=== PATIENT | female | born 1940 | race Caucasian/White ===

== ENCOUNTER 2018-05-07 16:49 | Emergency (ER) | payer BC, MEDICARE ==
[~2018-05-07] VITALS: Ht 147.3 cm; Wt 43.0 kg
[~2018-05-07 16:49] MED LIST: ALEN35TA24 PO; AMLO5TAB2 PO; ASPI1TAB57 PO; ATEN50TA PO; CALC12502 PO; CENTCHW4 CHEW; CLOB0.0510 TOPICAL; ESTR42.5V VAGINAL; FENO145T2 PO; GABA300C5 PO; HYDR25TA5 PO; MOBI15TA PO; SERT-129 PO
[2018-05-07 17:15] VITALS: BP 169/87; PULSE 82; RESP 14; TEMP 98.1; O2SAT 96
[2018-05-07 19:56] VITALS: BP 205/84; PULSE 73; RESP 18; O2SAT 98
[2018-05-07] MEDS ORDERED: MORPHINE SULFATE 2 MG/ML SYRINGE IV PUSH ONE (20:00)
[2018-05-07] MEDS ORDERED: MORPHINE SULFATE 4 MG/ML INJ IV PUSH ONE (20:15)
--- NOTE | 2018-05-07 20:33 | PD ---
HPI Chief Complaint: GI Complaint Time Seen by Provider: 19:45 Travel History International Travel<30 days: No Contact w/Intl Traveler<30days: No Traveled to known affect area: No History of Present Illness HPI This is a 77-year-old female who presents to the emergency department having fallen a week ago. She was dizzy at that time and fell backwards and hit her head and since then she has had severe low back pain radiating to the abdomen, constant, moderate severity worse with walking and moving improved with rest. She had an MRI as an outpatient following the fall in the setting of vertigo which she does not know the results of that it was done at [place]. FORMERLY [facility], [facility] Past Medical History Depression: Yes Cardiovascular Problems: Yes High Cholesterol: Yes Diabetes: No Patient Takes Glucophage: No Diminished Hearing: No Hypertension: Yes Psychiatric: Yes Immunizations Current: Yes Tetanus Vaccination: > 5 Years Influenza Vaccination: Yes ?: Not Menopausal: Yes : 1 Para: 1 Past Surgical History Other Surgery: Yes (CARPEL TUNNEL) Social History Alcohol Use: No Tobacco Use: Yes Substance Use: No Allergies-Medications (Allergen,Severity, Reaction): Coded Allergies: No Known Allergies (Unverified Adverse Reaction, Unknown, 05/07/18) Reported Meds & Prescriptions Reported Meds & Active Scripts Active Mobic (Meloxicam) 15 Mg Tab 15 Mg PO DAILY Reported Clobetasol Topical (Clobetasol Propionate) 0.05% Gel 1 Applic TOPICAL BID Estrace Vaginal (Estradiol) 0.01% Cream 1 Appl VAGINAL HS Sertraline (Sertraline HCl) 100 Mg Tab 100 Mg PO DAILY Calcium (Oyster Shell) 500 Mg Calcium (1250 Mg) Tab 500 Mg PO DAILY Centrum (Multiple Vitamins W/ Minerals) 1 Chew 1 Tab CHEW DAILY Alendronate (Alendronate Sodium) 35 Mg Tab 35 Mg PO Q7D Fenofibrate 145 Mg Tab 145 Mg PO DAILY Amlodipine (Amlodipine Besylate) 5 Mg Tab 5 Mg PO DAILY Gabapentin 300 Mg Cap 300 Mg PO HS Hydrochlorothiazide 25 Mg Tab 25 Mg PO BID Aspirin 81 (Aspirin) 81 Mg Tabdr 81 Mg PO DAILY Atenolol 50 Mg Tab 50 Mg PO BID Review of Systems Except as stated in HPI: all other systems reviewed are Neg Physical Exam Narrative GENERAL: Uncomfortable appearing. SKIN: Old healing laceration on the posterior occiput. HEAD: Atraumatic. Normocephalic. EYES: Pupils equal and round. No injection or drainage. ENT: Moist mucous membranes NECK: Trachea midline. CARDIOVASCULAR: Regular rate and rhythm. No murmur appreciated. RESPIRATORY: Clear to auscultation. Breath sounds equal bilaterally. GASTROINTESTINAL: Abdomen soft, tender to palpation worse in the lower abdomen with no rebound or guarding MUSCULOSKELETAL: Tender to palpation along the mid lumbar spine. Painless range of motion at the hips bilaterally. NEUROLOGICAL: Awake and alert. No obvious cranial nerve deficits. Moving all extremities. PSYCHIATRIC: Appropriate mood and affect; insight and judgment normal. Data Data Last Documented VS Vital Signs Date Time Temp Pulse Resp B/P (MAP) Pulse Ox O2 Delivery O2 Flow Rate FiO2 05/07/18 19:56 73 18 205/84 (124) 98 Room Air 05/07/18 17:15 98.1 Orders Orders Complete Blood Count With Diff (05/07/18 19:53) Basic Metabolic Panel (Bmp) (05/07/18 19:53) ^ Insert Iv (05/07/18 19:53) Ct Abd/Pel W Iv Contrast(Rout) (05/07/18 ) Morphine Inj (Morphine Inj) (05/07/18 20:00) Morphine Inj (Morphine Inj) (05/07/18 20:15) Ct Lumb Spine W Iv Contrast (05/07/18 ) Iohexol 350 Inj (Omnipaque 350 Inj) (05/07/18 21:23) Labs Laboratory Tests Test 05/07/18 20:10 White Blood Count 6.4 TH/MM3 Red Blood Count 4.68 MIL/MM3 Hemoglobin 14.4 GM/DL Hematocrit 42.5 % Mean Corpuscular Volume 90.8 FL Mean Corpuscular Hemoglobin 30.8 PG Mean Corpuscular Hemoglobin Concent 33.9 % Red Cell Distribution Width 14.9 % Platelet Count 330 TH/MM3 Mean Platelet Volume 8.6 FL Neutrophils (%) (Auto) 67.1 % Lymphocytes (%) (Auto) 18.5 % Monocytes (%) (Auto) 12.4 % Eosinophils (%) (Auto) 1.3 % Basophils (%) (Auto) 0.7 % Neutrophils # (Auto) 4.3 TH/MM3 Lymphocytes # (Auto) 1.2 TH/MM3 Monocytes # (Auto) 0.8 TH/MM3 Eosinophils # (Auto) 0.1 TH/MM3 Basophils # (Auto) 0.0 TH/MM3 CBC Comment DIFF FINAL Differential Comment Blood Urea Nitrogen 21 MG/DL Creatinine 0.98 MG/DL Random Glucose 81 MG/DL Calcium Level 10.3 MG/DL Sodium Level 138 MEQ/L Potassium Level 3.7 MEQ/L Chloride Level 100 MEQ/L Carbon Dioxide Level 28.2 MEQ/L Anion Gap 10 MEQ/L Estimat Glomerular Filtration Rate 55 ML/MIN MDM Medical Decision Making Medical Screen Exam Complete: Yes Emergency Medical Condition: Yes Interpretation(s) no leukocytosis electrolytes within normal limits Last 24 hours Impressions Lum[address]ine CT 05/07/18 0000 Signed Impressions: CONCLUSION: Severe multilevel facet arthritis and degenerative disc disease without spinal canal stenosis. Foraminal narrowing as above There is no evidence of acute frac ture. Abdomen/Pelvis CT 05/07/18 0000 Signed Impressions: CONCLUSION: No evidence of acute abdominal or pelvic process. No masses are identified. Differential Diagnosis Splenic laceration, liver laceration, compression fracture Narrative Course This is a 77-year-old female who presents to the emergency department with abdominal discomfort and back pain ever since she had a fall several 1 week ago. Labs are reassuring, CT abdomen pelvis and lumbar spine CT are reassuring with no evidence of injury. Patient will follow up with her primary care physician as an outpatient. She had an MRI of the brain performed following her fall which I looked at and it was negative for intracranial hemorrhage or acute stroke. Diagnosis Primary Impression: Low back pain Qualified Codes: M54.5 - Low back pain Patient Instructions: General Instructions Additional Instructions: If you develop weakness of your legs, difficulty walking, numbness of your legs or your genital or rectal area, loss of your bowel or bladder, or difficulty urinating return to the emergency department immediately. Followup with your primary care physician in one week if your symptoms have not improved. Med/Other Pt SpecificInfo: Prescription(s) given Scripts Tramadol (Tramadol) 50 Mg Tab 50 MG PO Q6H Y for PAIN, #10 TAB 0 Refills Prov: Ratna Romeo MD 05/07/18 Disposition: 01 DISCHARGE HOME Condition: Stable Ratna Romeo MD May 07, 2018 20:33
[2018-05-07 20:48] LABS: AUTOMATED NEUTROPHIL # 4.3 TH/MM3 (1.8-7.7); BASOPHIL % 0.7 % (0.0-2.0); EOSINOPHIL # 0.1 TH/MM3 (0-0.4); EOSINOPHIL % 1.3 % (0.0-4.0); HEMATOCRIT 42.5 % (35.0-46.0); HEMOGLOBIN 14.4 GM/DL (11.6-15.3); LYMPH % 18.5 % (9.0-44.0); LYMPHOCYTE # 1.2 TH/MM3 (1.0-4.8); MEAN CELL VOLUME 90.8 FL (80.0-100.0); MEAN CORPUSCULAR HEMOGLOBIN 30.8 PG (27.0-34.0); MEAN CORPUSCULAR HGB CONC 33.9 % (32.0-36.0); MEAN PLATELET VOLUME 8.6 FL (7.0-11.0); MONO % 12.4 % (0.0-8.0); MONOCYTE # 0.8 TH/MM3 (0-0.9); NEUT % 67.1 % (16.0-70.0); PLATELET COUNT 330 TH/MM3 (150-450); RED BLOOD COUNT 4.68 MIL/MM3 (4.00-5.30); RED CELL DISTRIBUTION WIDTH 14.9 % (11.6-17.2); WHITE BLOOD COUNT 6.4 TH/MM3 (4.0-11.0)
[2018-05-07 20:56] LABS: BICARBONATE 28.2 MEQ/L (21.0-32.0); CALCIUM 10.3 MG/DL (8.5-10.1); CREATININE 0.98 MG/DL (0.50-1.00)
[2018-05-07] MEDS ORDERED: IOHEXOL 350 MG/ML 10 ML VIAL (for RAD DIAG) IVCONTRAST ONE (21:23)
--- NOTE | 2018-05-07 21:41 | RADRPT ---
EXAM DATE: 05/07/2018 9:27 PM EDT AGE/SEX: 77 years / Female INDICATIONS: Trauma; patient fell one week ago. Abdominal pain. CLINICAL DATA: This is the patient's initial encounter. Patient reports that signs and symptoms have been present for 1 week and indicates a pain score of 6/10. MEDICAL/SURGICAL HISTORY: Cardiovascular disease. Hypertension. None. ORAL CONTRAST: No oral contrast ingested. RADIATION DOSE: 6.4 CTDI (mGy) ; Combined studies COMPARISON: No prior exams available for comparison. TECHNIQUE: Multiple contiguous axial images were obtained through the abdomen and pelvis following b olus infusion of 96 ml Omnipaque 350 (iohexol) nonionic water-soluble contrast as a cumulative dose for multiple exams. No oral contrast ingested. Using automated exposure control and adjustment of t he mA and/or kV according to patient size, radiation dose was kept as low as reasonably achievable to obtain optimal diagnostic quality images. DICOM format image data is available electronically for r eview and comparison. FINDINGS: There is subsegmental atelectasis in the right base. A small hiatal hernia is present. The liver and spleen are normal in size and no focal defects are identified. The gallbladder and pancreas are un remarkable. No intrahepatic or extrahepatic ductal dilatation is seen. The adrenal glands and kidneys appear normal bilaterally. No hydronephrosis or mass lesions are identified. Examination of the pelvis demonstrates no evidence of free fluid or pelvic mass. No abnormally enlarg ed inguinal or retroperitoneal lymph nodes are present. The bladder is unremarkable. There is diverti culosis without evidence of diverticulitis. Multilevel degenerative changes present in the lumbar spine with bilateral hip replacements. There is no evidence of acute fracture. There is 5 mm subluxation of L4 and L5 as well as retrolisthesis of L1 on L2 with severe multilevel facet arthritis. CONCLUSION: No evidence of acute abdominal or pelvic process. No masses are identified. Electronically signed by: Robin Fisher MD 05/07/2018 9:40 PM EDT
--- NOTE | 2018-05-07 21:55 | RADRPT ---
EXAM DATE: 05/07/2018 9:45 PM EDT AGE/SEX: 77 years / Female INDICATIONS: Low back pain following a fall one week ago. CLINICAL DATA: This is the patient's initial encounter. Patient reports that signs and symptoms have been present for 1 week and indicates a pain score of 6/10. MEDICAL/SURGICAL HISTORY: Cardiovascular disease. Hypertension. None. RADIATION DOSE: 6.4 CTDI (mGy) ; Combined studies COMPARISON: No prior exams available for comparison. TECHNIQUE: Contiguous axial images were acquired with a multirow detector CT scanner after intraveno us administration of 96 ml Omnipaque 350 (iohexol) nonionic water-soluble contrast as a cumulative d ose for multiple exams. Multiplanar reconstructions in the sagittal and coronal plane were also perf ormed. Using automated exposure control and adjustment of the mA and/or kV according to patient size, radiation dose was kept as low as reasonably achievable to obtain optimal diagnostic quality images. DICOM format image data is available electronically for review and comparison. FINDINGS: Sagittal images demonstrate normal vertebral body alignment and curvature. There is anterolisthesis l ikely related to facet arthritis at L4-L5 4 to 5 mm with retrolisthesis of L2 on L3 and L1-L2 3 to 4 mm. There is severe degenerative disc disease at T12-L1 and L1-L2.. No fractures are identified. Axia l images performed from T12-L1 through L5-S1. T12-L1: There is broad-based annular bulge of disc. There is no significant spinal canal stenosis. T here is mild facet arthritis and ligamentum flavum hypertrophy bilaterally. L1-L2: There is mild annular bulge of the disc. There is moderate neural foraminal narrowing bilater ally. There is no significant spinal canal stenosis. L2-L3: There is mild annular bulge of the disc. There is moderate facet arthritis bilaterally with l igamentum flavum hypertrophy. There is mild neural foraminal narrowing bilaterally. L3-L4: There is mild annular bulge of the disc. There is no significant spinal canal stenosis. L4-L5: There is broad-based annular bulge of disc. There is severe facet arthritis bilaterally with ligamentum flavum hypertrophy impinging on the thecal sac. There is no significant spinal canal sten osis. There is mild right-sided foraminal narrowing. L5-S1: There is mild annular bulge of the disc. There is severe facet arthritis bilaterally with lig amentum flavum hypertrophy impinging on the thecal sac. There is no significant spinal canal stenosi s. There is mild neural foraminal narrowing bilaterally. CONCLUSION: Severe multilevel facet arthritis and degenerative disc disease without spinal canal stenosis. Forami nal narrowing as above There is no evidence of acute fracture. Electronically signed by: Robin Fisher MD 05/07/2018 9:54 PM EDT
[2018-05-07] MEDS ORDERED: TRAM50TA PO (22:14)
== END 2018-05-07 22:34 | disposition home or self-care (01) ==
LOC: NEPD 16:49
DX: M54.5 Low back pain (principal); I10 Essential (primary) hypertension; R42 Dizziness and giddiness; Z72.0 Tobacco use
CPT/HCPCS: 72132; 74177; 80048; 85025; 96374; 99284; J2270; Q9967